=== PATIENT | female | born 1975 | race Caucasian/White ===

== ENCOUNTER → 2017-10-30 | Outpatient (CLI) | payer OTHER ==
--- NOTE | 2017-10-30 08:21 | US ---
EXAMINATION TYPE: US thyroid st tissue head/neck DATE OF EXAM: 10/30/2017 COMPARISON: NONE CLINICAL HISTORY: E04.9Nontoxic goiter. Patient states doctor felt gland was enlarged. No thyroid me ds. GLAND SIZE: Right Lobe: 4.8 x 1.5 x 1.9 cm Overall Parenchyma: homogenous Left Lobe: 4.7 x 1.6 x 1.4 cm Overall Parenchyma: homogeneous Isthmus Thickness: 0.4 cm NODULES RIGHT: # of nodules measured on right: 0 LEFT: # of nodules measured on left: 0 ISTHMUS: # of nodules measured in the isthmus: 0 Bilateral neck scanned, no evidence of lymphadenopathy. IMPRESSION: No distinct abnormality appreciated.
--- NOTE | 2017-10-30 08:43 | MM ---
Reason for exam: screening (asymptomatic). Baseline mammogram. History: Family history of breast cancer in maternal grandmother at age 58. Took hormonal contraceptives beginning at age 14. Physical Findings: Nurse did not find any significant physical abnormalities on exam. MG Screening Mammo w CAD Bilateral CC and MLO view(s) were taken. The breast tissue is heterogeneously dense. This may lower the sensitivity of mammography. There is no discrete abnormality. These results were verbally communicated with the patient and result sheet given to the patient on 10/30/17. ASSESSMENT: Negative, BI-RAD 1 RECOMMENDATION: Routine screening mammogram of both breasts in 1 year.
== END | disposition home or self-care (01) ==
LOC: RADMAMWWP 06:55
PROVIDERS: ATTEND Family Medicine
DX: Z12.31 Encounter for screening mammogram for malignant neoplasm of breast (principal); E04.9 Nontoxic goiter, unspecified
CPT/HCPCS: 76536; 77067

== ENCOUNTER 2021-11-17 07:11 | Emergency (ER) | payer BC, OTHER ==
[2021-11-17 07:21] VITALS: RESP 16; TEMP 98
[2021-11-17] MEDS ORDERED: SODIUM CHLORIDE 0.9% 1,000 ML IV STA (07:30)
[2021-11-17] MEDS ORDERED: diphenhydrAMINE 50 MG/ML 1 ML VIAL IVP STA (07:30)
[2021-11-17] MEDS ORDERED: DEXAMETHASONE SOD PHOSPHATE 10 MG/ML 1 ML VIAL IV STA (07:30)
--- NOTE | 2021-11-17 07:35 | ED ---
Headache HPI - General Chief Complaint: Headache Stated Complaint: Headache Time Seen by Provider: 11/17/21 07:22 Source: patient, RN notes reviewed, old records reviewed Mode of arrival: ambulatory Limitations: no limitations - History of Present Illness Initial Comments: This is a well-appearing 46-year-old female that presents to the emergency room with occipital headache. Patient states that she woke up yesterday with these symptoms. She denies any trauma, fevers, no nausea vomiting diarrhea or visual changes. She has no medical history. She states that she did have migraine headaches 10 years ago which were hormonal based per her doctor. She denies any medical history, no medications on a daily basis. She denies use of cigarettes, alcohol or drugs, but does vape. MD Complaint: headache -: days(s) (2) Onset Description: awoke with symptoms Location: occipital Severity scale (1-10): 8 Quality: aching, constant Consistency: constant Improves With: nothing Context: occurred at rest - Related Data On Hormonal Control: No Allergies Allergy/AdvReac Type Severity Reaction Status Date / Time No Known Allergies Allergy Verified 11/17/21 07:17 Review of Systems ROS Statement: Those systems with pertinent positive or pertinent negative responses have been documented in the HPI. ROS Other: All systems not noted in ROS Statement are negative. Past Medical History Past Medical History: No Reported History History of Any Multi-Drug Resistant Organisms: None Reported Additional Past Surgical History / Comment(s): d&c Past Psychological History: No Psychological Hx Reported Smoking Status: Vaper Past Alcohol Use History: None Reported Past Drug Use History: None Reported General Exam Limitations: no limitations General appearance: alert, in no apparent distress Head exam: Present: atraumatic, normocephalic, normal inspection Eye exam: Present: normal appearance, EOMI. Absent: scleral icterus, conjunctival injection, nystagmus, periorbital swelling ENT exam: Present: mucous membranes dry Neck exam: Present: normal inspection, full ROM. Absent: tenderness, meningismus Respiratory exam: Present: normal lung sounds bilaterally. Absent: respiratory distress, wheezes, rales, rhonchi, stridor, chest wall tenderness, accessory muscle use Cardiovascular Exam: Present: regular rate Extremities exam: Present: full ROM, normal capillary refill. Absent: tenderness, pedal edema Back exam: Present: normal inspection. Absent: tenderness, CVA tenderness (R), CVA tenderness (L), rash noted Neurological exam: Present: alert, oriented X3, CN II-XII intact, normal gait Expanded Patient oriented to: Present: person, place, time Speech: Present: fluid speech Cranial nerves: EOM's Intact: Normal, Gag Reflex: Normal, Tongue Deviation: Normal Cerebellar function: Finger to Nose: Normal, Heel to [place]: Normal Motor strength exam: RUE: 5, LUE: 5, RLE: 5, LLE: 5 Eye Response: (4) open spontaneously Motor Response: (6) obeys commands Verbal Response: (5) oriented [place] Total: 15 Psychiatric exam: Present: normal affect, normal mood Skin exam: Present: warm, dry, intact, normal color. Absent: cyanosis, diaphoretic, petechiae, pallor Course Vital Signs 11/17/21 11/17/21 07:18 08:14 Temperature 98 F Pulse Rate 77 60 Respiratory 16 16 Rate Blood Pressure 113/74 112/64 O2 Sat by Pulse 100 100 Oximetry Medical Decision Making - Medical Decision Making Patient states that her headache has been relieved with IVF and medications. Patient has no focal neurological deficits. She is ambulatory with a steady gait. Vital signs are stable. She'll be discharged home to follow up with her primary care doctor, continue Tylenol and Motrin as needed for headaches and increase her fluid intake. Return to the emergency room with any new or concerning symptoms. Case discussed with Dr. Lazo. Disposition Clinical Impression: Headache Disposition: HOME SELF-CARE Condition: Good Instructions (If sedation given, give patient instructions): Acute Headache (E D) Additional Instructions: Tylenol and/or Motrin as needed for headaches. Increase your fluid intake. Follow-up with your primary care doctor within the next week. Return to the emergency room with any new or concerning symptoms. Is patient prescribed a controlled substance at d/c from ED?: No Referrals: Adamaris Toussaint DO [Primary Care Provider] - 1-2 days Time of Disposition: 09:32
[2021-11-17] MEDS ORDERED: KETOROLAC 15 MG/ML 1 ML VIAL IVP STA (08:03)
[2021-11-17 08:17] VITALS: BP 112/64; PULSE 60
== END 2021-11-17 10:05 | disposition home or self-care (01) ==
LOC: EC 07:11
DX: R51.9 Headache, unspecified (principal); F17.290 Nicotine dependence, other tobacco product, uncomplicated
CPT/HCPCS: 99283; 96374; 96375; 96361; J1200; J1100; J1885